=== PATIENT | male | born 1980 | race African-American/Black ===

== ENCOUNTER 2022-10-03 00:48 | Inpatient (IN) | payer SELFPAY ==
[~2022-10-03] VITALS: Ht 162.6 cm; Wt 66.7 kg
[2022-10-03 05:23] LABS: BASOPHILS % 0.4 % (0.0-2.0); HEMATOCRIT. 38.5 % (42.0-52.0); HEMOGLOBIN. 12.6 g/dL (14.0-18.0); LYMPHOCYTES % 25.1 % (20.0-50.0); MEAN CORPUSCULAR HGB CONC 32.7 g/dL (31.0-37.0); MEAN CORPUSCULAR VOLUME 88.8 fL (80.0-94.0); MEAN PLATELET VOLUME 7.8 fl (7.4-10.4); MONOCYTES % 9.7 % (2.0-8.0); NEUTROPHILS % 64.8 % (40.0-76.0); PLATELET 317 x1000/uL (130-400); RED BLOOD CELL COUNT 4.33 mill/uL (4.7-6.1); RED CELL DISTRIBUTION WIDTH 16.8 % (11.6-14.6); WHITE BLOOD COUNT 8.1 x1000/uL (4.5-11.0)
[2022-10-03 05:33] LABS: CHLORIDE 107 mEq/L (98-107); INDEX HEMOLYSI 1 (1-3); INDEX ICTERIC 1 (1-4); INDEX LIPEMIC 1 (1-3); SODIUM 140 mEq/L (136-145)
[2022-10-03 05:42] LABS: ALANINE AMINOTRANSFERASE 31 IU/L (13-61); ALBUMIN 4.1 g/dL (3.4-5.0); ASPARTATE AMINOTRANSFERASE 45 IU/L (15-37); BILIRUBIN TOTAL 0.6 mg/dL (0.1-1.0); CALCIUM 9.9 mg/dL (8.5-10.1); CARBON DIOXIDE 26 mEq/L (21-32); CREATININE 0.9 mg/dL (0.6-1.3); ETHANOL BLOOD < 10 mg/dL (-10); GLUCOSE 85 mg/dL (70-105); PROTEIN TOTAL 8.1 g/dL (6.0-8.3); UREA NITROGEN BLOOD 18 mg/dL (7-21)
[2022-10-03] MEDS ORDERED: POTASSIUM CHLORIDE INJ 40 MEQ in DEXT 5% WATER 250 ML IV ONE (05:45)
[2022-10-03] MEDS: KCL 20MEQ/100ML X 2 FOR TOTAL KCL 40MEQ/200ML IV SCH ×2 (06:00→08:00)
[2022-10-03] MEDS ORDERED: POTASSIUM CHLORIDE 20MEQ TABLET SR PO SCH (07:00)
[2022-10-03] MEDS ORDERED: HALOPERIDOL LACTATE 5MG/ML VIAL IM ONE (07:15)
[2022-10-03] MEDS ORDERED: LORAZEPAM 2MG/ML CPJ IM ONE (07:15)
[2022-10-03 09:02] LABS: *AMPHETAMINES SCREEN URINE NEGATIVE (NEGATIVE); *BARBITURATES SCREEN URINE NEGATIVE (NEGATIVE); *BENZODIAZEPINES SCREEN URINE NEGATIVE (NEGATIVE); *COCAINE SCREEN URINE NEGATIVE (NEGATIVE); CANNABINOID URINE SCREEN NEGATIVE (NEGATIVE); ECSTASY MDMA SCREEN URINE NEGATIVE (NEGATIVE); METHADONE URINE SCREEN NEGATIVE (NEGATIVE); OPIATES URINE SCREEN NEGATIVE (NEGATIVE); PHENCYCLIDINE URINE SCREEN NEGATIVE (NEGATIVE)
[2022-10-09] MEDS ORDERED: SODIUM CHLORIDE 0.9% 1,000 ML IV ONE (14:00)
[2022-10-09 14:18] LABS: BASOPHILS % 0.9 % (0.0-2.0); HEMATOCRIT. 42.8 % (42.0-52.0); HEMOGLOBIN. 14.4 g/dL (14.0-18.0); MEAN CORPUSCULAR HEMOGLOBIN 29.8 pg (28.0-32.0); MEAN CORPUSCULAR HGB CONC 33.7 g/dL (31.0-37.0); MEAN CORPUSCULAR VOLUME 88.5 fL (80.0-94.0); MEAN PLATELET VOLUME 7.9 fl (7.4-10.4); MONOCYTES % 8.6 % (2.0-8.0); NEUTROPHILS % 46.5 % (40.0-76.0); PLATELET 308 x1000/uL (130-400); RED BLOOD CELL COUNT 4.84 mill/uL (4.7-6.1); WHITE BLOOD COUNT 5.2 x1000/uL (4.5-11.0)
[2022-10-09 14:21] LABS: CHLORIDE 104 mEq/L (98-107); INDEX HEMOLYSI 1 (1-3); INDEX ICTERIC 1 (1-4); INDEX LIPEMIC 1 (1-3); POTASSIUM 3.9 mEq/L (3.5-5.1); SODIUM 136 mEq/L (136-145)
[2022-10-09] MEDS ORDERED: LORAZEPAM 2MG/ML CPJ IV ONE (14:30)
[2022-10-09 14:31] LABS: ALANINE AMINOTRANSFERASE 28 IU/L (13-61); ALBUMIN 3.5 g/dL (3.4-5.0); ASPARTATE AMINOTRANSFERASE 22 IU/L (15-37); BILIRUBIN TOTAL 0.5 mg/dL (0.1-1.0); CALCIUM 9.2 mg/dL (8.5-10.1); CARBON DIOXIDE 27 mEq/L (21-32); GLUCOSE 127 mg/dL (70-105); PROTEIN TOTAL 7.2 g/dL (6.0-8.3); TROPONIN I HIGH SENSITIVITY 69 ng/L (<78); UREA NITROGEN BLOOD 11 mg/dL (7-21)
[2022-10-09 17:00] VITALS: BP 143/85; PULSE 69; RESP 20; TEMP 97.3
[2022-10-09 17:15] VITALS: BP 143/85; PULSE 69; RESP 20; TEMP 97.3
[2022-10-09] MEDS ORDERED: ACETAMINOPHEN 650MG/20.3ML UDC PO PRN (18:15)
[2022-10-09] MEDS ORDERED: ONDANSETRON HCL 4MG/2ML INJ IV PRN (18:15)
[2022-10-09] MEDS ORDERED: LORAZEPAM 0.5MG TABLET PO PRN (19:45)
[2022-10-09 20:00] VITALS: BP 116/68; PULSE 66; RESP 16; TEMP 97.1
[2022-10-09] MEDS ORDERED: FOLIC ACID 1 MG, THIAMINE HCL 100 MG, MVI, ADULT NO.1 10 ML in DEXTROSE 5% WATER 1,000 ML IV SCH ×4 (20:30)
[2022-10-10] VITALS: BP 95/56; PULSE 70; RESP 16; TEMP 97.7
[2022-10-10 04:00] VITALS: BP 120/71; PULSE 52; RESP 16; TEMP 97.7
[2022-10-10 08:00] VITALS: BP 100/65; PULSE 83; RESP 18; TEMP 98.1
[2022-10-10 12:00] VITALS: BP_SYST 112; BP_DIAS 56; BP_DIAS 6; PULSE 71; RESP 18; TEMP 97.7
[2022-10-10 16:00] VITALS: BP 124/66; PULSE 76; RESP 18; TEMP 97.4
[2022-10-10 20:00] VITALS: BP 126/71; PULSE 92; RESP 18; TEMP 97
[2022-10-11] VITALS: BP 110/60; PULSE 70; RESP 18; TEMP 98
[2022-10-11 04:00] VITALS: BP 120/93; PULSE 64; RESP 18; TEMP 98
[2022-10-11 08:00] VITALS: BP 124/76; PULSE 92; RESP 20; TEMP 97
[2022-10-11 12:00] VITALS: BP 149/85; PULSE 91; RESP 20; TEMP 99
[2022-10-11 16:00] VITALS: BP 116/76; PULSE 78; RESP 20; TEMP 97.5
[2022-10-11 20:00] VITALS: BP 115/66; PULSE 70; RESP 20; TEMP 98.2
[2022-10-12] VITALS: BP 125/60; PULSE 77; RESP 18; TEMP 98.2
[2022-10-12 04:00] VITALS: BP 116/70; PULSE 95; RESP 18; TEMP 98
[2022-10-12 08:00] VITALS: BP 132/75; PULSE 103; RESP 20; TEMP 98.1
[2022-10-12 12:00] VITALS: BP 128/92; PULSE 68; RESP 18; TEMP 97.4
[2022-10-12 16:00] VITALS: BP 130/70; PULSE 90; RESP 18; TEMP 97.6
[2022-10-12 20:00] VITALS: BP 138/70; PULSE 90; RESP 18; TEMP 98.4
[2022-10-13] VITALS: BP 130/80; PULSE 83; RESP 18; TEMP 97.8
[2022-10-13 04:00] VITALS: BP 112/80; PULSE 82; RESP 18; TEMP 97
[2022-10-13 04:10] LABS: HIV SCREEN 4G Non Reactive (Non Reactive)
[2022-10-13 08:00] VITALS: BP 114/66; PULSE 78; RESP 18; TEMP 97.9
[2022-10-13 12:31] VITALS: BP 127/81; PULSE 86; RESP 20; TEMP 97.6
[2022-10-13 16:00] VITALS: PULSE 102; RESP 18; TEMP 99
[2022-10-14] VITALS: BP 159/78; PULSE 53; RESP 17; TEMP 97.5
[2022-10-14 04:00] VITALS: BP 107/64; PULSE 72; RESP 17; TEMP 97.7
[2022-10-14 12:00] VITALS: BP 124/85; PULSE 102; RESP 18; TEMP 97.6
[2022-10-14 16:00] VITALS: BP 131/78; PULSE 83; RESP 18; TEMP 98.2
[2022-10-14 20:00] VITALS: BP 142/98; PULSE 95; RESP 17; TEMP 97.7
[2022-10-15] VITALS: BP 152/89; PULSE 72; RESP 17; TEMP 97.5
[2022-10-15 04:00] VITALS: BP 133/76; PULSE 95; RESP 17; TEMP 97.9
[2022-10-15 08:00] VITALS: BP 143/91; PULSE 66; RESP 20; TEMP 97.9
[2022-10-15] MEDS: RISPERIDONE 1MG TABLET PO SCH ×2 (10:07→21:07)
[2022-10-15] MEDS ORDERED: HALOPERIDOL LACTATE 5MG/ML VIAL IM PRN (11:15)
[2022-10-15] MEDS ORDERED: LORAZEPAM 2MG/ML CPJ IV PRN (11:15)
[2022-10-15] MEDS ORDERED: DIPHENHYDRAMINE 50MG/ML VIAL IV PRN (11:15)
[2022-10-15 12:00] VITALS: BP 121/58; PULSE 100; RESP 18; TEMP 97.3
[2022-10-15 16:00] VITALS: BP 118/63; PULSE 68; RESP 18; TEMP 97.4
[2022-10-15 20:00] VITALS: BP 116/68; PULSE 88; RESP 20; TEMP 98
[2022-10-16] VITALS: BP 118/66; PULSE 77; RESP 20; TEMP 98.4
[2022-10-16 04:00] VITALS: BP 125/80; PULSE 80; RESP 18; TEMP 98.6
[2022-10-16] MEDS: RISPERIDONE 1MG TABLET PO SCH ×2 (08:59→21:30)
[2022-10-16 12:00] VITALS: BP 143/74; PULSE 78; RESP 18; TEMP 97.6
[2022-10-16 16:00] VITALS: BP 130/71; PULSE 82; RESP 20; TEMP 97.8
[2022-10-16 20:00] VITALS: BP 129/77; PULSE 67; RESP 17; TEMP 97.7
[2022-10-17 08:00] VITALS: BP 126/78; PULSE 97; RESP 17; TEMP 97.8
[2022-10-17] MEDS: RISPERIDONE 1MG TABLET PO SCH ×2 (09:31→22:16)
[2022-10-17 12:00] VITALS: BP 122/78; PULSE 80; RESP 18; TEMP 97.3
[2022-10-17 20:00] VITALS: BP 140/77; PULSE 83; RESP 18; TEMP 97.7
[2022-10-18] VITALS: BP 135/83; PULSE 81; RESP 18; TEMP 97.5
[2022-10-18 04:00] VITALS: BP 119/75; PULSE 82; RESP 18; TEMP 97.5
[2022-10-18 08:00] VITALS: BP 110/60; PULSE 64; RESP 18; TEMP 97.9
[2022-10-18] MEDS: RISPERIDONE 1MG TABLET PO SCH ×2 (10:52→20:52)
[2022-10-18 12:00] VITALS: BP 112/62; PULSE 62; RESP 18; TEMP 98.7
[2022-10-18 16:00] VITALS: BP 110/66; PULSE 64; RESP 16; TEMP 98.7
[2022-10-18 20:24] VITALS: BP 140/59; PULSE 59; RESP 17; TEMP 96.6
[2022-10-19 00:02] VITALS: BP 129/82; PULSE 77; RESP 18; TEMP 97.4
[2022-10-19 04:26] VITALS: BP 105/42; PULSE 74; RESP 18; TEMP 98.1
[2022-10-19] MEDS: RISPERIDONE 1MG TABLET PO SCH ×2 (07:45→21:43)
[2022-10-19 08:00] VITALS: BP 126/74; PULSE 67; RESP 20; TEMP 97.6
[2022-10-19 12:00] VITALS: BP 125/81; PULSE 101; RESP 18; TEMP 96.7
[2022-10-19 16:00] VITALS: BP 127/83; PULSE 94; RESP 20; TEMP 97.6
[2022-10-19 20:00] VITALS: BP 152/86; PULSE 89; RESP 18; TEMP 97
[2022-10-20] VITALS: BP 130/70; PULSE 80; RESP 20; TEMP 97
[2022-10-20 04:00] VITALS: BP 129/80; PULSE 78; RESP 20; TEMP 97
[2022-10-20] MEDS: RISPERIDONE 1MG TABLET PO SCH ×2 (07:37→21:17)
[2022-10-20 07:56] VITALS: BP 127/83; PULSE 67; RESP 20; TEMP 97.1
[2022-10-20 12:00] VITALS: BP 119/74; PULSE 96; RESP 18; TEMP 97.7
[2022-10-20 16:00] VITALS: BP 132/77; PULSE 79; RESP 20; TEMP 97.3
[2022-10-20 20:00] VITALS: BP 124/69; PULSE 73; RESP 17; TEMP 97.7
[2022-10-21] VITALS: BP 136/82; PULSE 81; RESP 17; TEMP 97.7
[2022-10-21 04:00] VITALS: BP 130/72; PULSE 77; RESP 18; TEMP 97.5
[2022-10-21 08:00] VITALS: BP 144/92; PULSE 86; RESP 18; TEMP 97.7
[2022-10-21 08:54] VITALS: PULSE 86; RESP 18; TEMP 97.7
[2022-10-21] MEDS: RISPERIDONE 1MG TABLET PO SCH ×2 (09:00→20:58)
[2022-10-21] MEDS ORDERED: LORAZEPAM 2MG/ML CPJ IM PRN (12:45)
[2022-10-21 16:24] LABS: BASOPHILS % 0.8 % (0.0-2.0); EOSINOPHILS % 0.5 % (0.0-5.0); HEMATOCRIT. 38.9 % (42.0-52.0); HEMOGLOBIN. 12.9 g/dL (14.0-18.0); LYMPHOCYTES % 29.8 % (20.0-50.0); MEAN CORPUSCULAR HEMOGLOBIN 29.2 pg (28.0-32.0); MEAN CORPUSCULAR HGB CONC 33.2 g/dL (31.0-37.0); MEAN CORPUSCULAR VOLUME 87.9 fL (80.0-94.0); MEAN PLATELET VOLUME 7.3 fl (7.4-10.4); MONOCYTES % 6.8 % (2.0-8.0); NEUTROPHILS % 62.1 % (40.0-76.0); PLATELET 345 x1000/uL (130-400); RED BLOOD CELL COUNT 4.43 mill/uL (4.7-6.1); WHITE BLOOD COUNT 6.4 x1000/uL (4.5-11.0)
[2022-10-21 16:27] LABS: CHLORIDE 103 mEq/L (98-107); INDEX HEMOLYSI 1 (1-3); INDEX ICTERIC 1 (1-4); INDEX LIPEMIC 1 (1-3); POTASSIUM 3.9 mEq/L (3.5-5.1); SODIUM 137 mEq/L (136-145)
[2022-10-21 16:32] LABS: AMMONIA 30 uMol/L (<32)
[2022-10-21 16:36] LABS: ALANINE AMINOTRANSFERASE 29 IU/L (13-61); ALBUMIN 3.5 g/dL (3.4-5.0); ASPARTATE AMINOTRANSFERASE 16 IU/L (15-37); BILIRUBIN TOTAL 0.3 mg/dL (0.1-1.0); CARBON DIOXIDE 28 mEq/L (21-32); CREATINE KINASE 80 IU/L (39-308); CREATININE 0.9 mg/dL (0.6-1.3); GLUCOSE 100 mg/dL (70-105); PHOSPHORUS 3.7 mg/dL (2.5-4.9); PROTEIN TOTAL 7.3 g/dL (6.0-8.3); UREA NITROGEN BLOOD 12 mg/dL (7-21)
[2022-10-21 18:00] VITALS: BP 125/70; PULSE 73; RESP 18; TEMP 97.5
[2022-10-21 20:12] VITALS: BP 139/77; PULSE 77; RESP 20; TEMP 97.1
[2022-10-21] MEDS: LEVETIRACETAM 500MG TABLET PO SCH (20:58)
[2022-10-22 01:00] VITALS: BP 129/59; PULSE 82; RESP 20; TEMP 96.9
[2022-10-22 04:00] VITALS: BP 132/45; PULSE 88; RESP 20; TEMP 97.2
[2022-10-22 08:00] VITALS: BP 103/70; PULSE 87; RESP 17; TEMP 97.8
[2022-10-22] MEDS: RISPERIDONE 1MG TABLET PO SCH ×2 (08:09→20:50)
[2022-10-22] MEDS: LEVETIRACETAM 500MG TABLET PO SCH ×2 (08:09→20:50)
[2022-10-22 20:00] VITALS: BP 104/63; PULSE 55; RESP 18; TEMP 97.7
[2022-10-23] VITALS (7 sets, daily range): BP systolic 100–120; BP diastolic 43–75; PULSE 69–88; RESP 18–20; TEMP 97–98.1
[2022-10-23] MEDS: LEVETIRACETAM 500MG TABLET PO SCH ×2 (09:57→20:22)
[2022-10-23] MEDS: RISPERIDONE 1MG TABLET PO SCH ×2 (09:57→20:22)
[2022-10-24 04:00] VITALS: BP 114/62; PULSE 70; RESP 20; TEMP 97.3
[2022-10-24 08:00] VITALS: BP 119/64; PULSE 56; RESP 19; TEMP 96.7
[2022-10-24] MEDS: LEVETIRACETAM 500MG TABLET PO SCH ×2 (08:00→21:24)
[2022-10-24] MEDS: RISPERIDONE 1MG TABLET PO SCH ×2 (08:00→21:24)
[2022-10-24 12:00] VITALS: BP 122/68; PULSE 86; RESP 19; TEMP 97.5
[2022-10-24 16:00] VITALS: BP 116/58; PULSE 82; RESP 19; TEMP 98.9
[2022-10-24 19:32] VITALS: BP 140/76; PULSE 52; RESP 20; TEMP 97.6
[2022-10-25] VITALS: BP 132/55; PULSE 80; RESP 20; TEMP 97.2
[2022-10-25 04:00] VITALS: BP 124/63; PULSE 74; RESP 20; TEMP 97.5
[2022-10-25 08:00] VITALS: BP 128/74; PULSE 69; RESP 20; TEMP 97.5
[2022-10-25] MEDS: LEVETIRACETAM 500MG TABLET PO SCH ×2 (08:12→21:30)
[2022-10-25] MEDS: RISPERIDONE 1MG TABLET PO SCH ×2 (08:12→21:30)
[2022-10-25] MEDS: POLYETHYLENE GLYCOL 3350 (17GM) 1 DOSE PACK PO SCH (11:35)
[2022-10-25 12:00] VITALS: BP 144/74; PULSE 92; RESP 18; TEMP 97.9
[2022-10-25 16:00] VITALS: BP 154/81; PULSE 92; RESP 19; TEMP 98.1
[2022-10-25 20:00] VITALS: BP 122/73; PULSE 92; RESP 17; TEMP 97.5
[2022-10-26] VITALS: RESP 18
[2022-10-26 04:00] VITALS: RESP 17
[2022-10-26 08:00] VITALS: BP 101/62; PULSE 79; RESP 20; TEMP 97.3
[2022-10-26] MEDS: LEVETIRACETAM 500MG TABLET PO SCH ×2 (08:35→20:28)
[2022-10-26] MEDS: RISPERIDONE 1MG TABLET PO SCH ×2 (08:35→20:28)
[2022-10-26] MEDS: POLYETHYLENE GLYCOL 3350 (17GM) 1 DOSE PACK PO SCH (08:35)
[2022-10-26 12:00] VITALS: BP 120/74; PULSE 98; RESP 18; TEMP 97
[2022-10-26] MEDS: LACTULOSE 20G/30ML UDC PO SCH (12:36)
[2022-10-26 16:00] VITALS: BP 111/70; PULSE 88; RESP 20; TEMP 97.6
[2022-10-26 20:00] VITALS: BP 103/63; PULSE 83; RESP 18; TEMP 97
[2022-10-27] VITALS: BP_SYST 107; BP_SYST 114; BP_DIAS 63; BP_DIAS 77; PULSE 70; PULSE 79; PULSE 99; RESP 19; TEMP 97.5; TEMP 97.8
[2022-10-27 04:00] VITALS: BP_SYST 108; BP_SYST 110; BP_DIAS 64; BP_DIAS 68; PULSE 70; PULSE 82; RESP 18; RESP 20; TEMP 97.2; TEMP 97.7
[2022-10-27 08:00] VITALS: BP 122/65; PULSE 71; RESP 18; TEMP 97
[2022-10-27] MEDS: LACTULOSE 20G/30ML UDC PO SCH (09:41)
[2022-10-27] MEDS: RISPERIDONE 1MG TABLET PO SCH ×2 (09:41→22:07)
[2022-10-27] MEDS: POLYETHYLENE GLYCOL 3350 (17GM) 1 DOSE PACK PO SCH (09:41)
[2022-10-27] MEDS: LEVETIRACETAM 500MG TABLET PO SCH ×2 (09:41→21:16)
[2022-10-28 04:00] VITALS: BP 117/65; PULSE 70; RESP 17; TEMP 97.7
[2022-10-28 08:00] VITALS: BP 104/75; PULSE 78; RESP 20; TEMP 98.4
[2022-10-28] MEDS: LEVETIRACETAM 500MG TABLET PO SCH ×2 (08:37→21:04)
[2022-10-28] MEDS: POLYETHYLENE GLYCOL 3350 (17GM) 1 DOSE PACK PO SCH (08:37)
[2022-10-28] MEDS: RISPERIDONE 1MG TABLET PO SCH ×2 (08:37→21:06)
[2022-10-28] MEDS: LACTULOSE 20G/30ML UDC PO SCH (08:37)
[2022-10-28 12:00] VITALS: BP 117/57; PULSE 78; RESP 21; TEMP 98.2
[2022-10-28 16:00] VITALS: BP 114/74; PULSE 85; RESP 20; TEMP 98.8
[2022-10-28 20:00] VITALS: BP 121/75; PULSE 83; RESP 20; TEMP 98.5
[2022-10-28 23:53] VITALS: BP 124/87; PULSE 78; RESP 20; TEMP 98.6
[2022-10-29 04:00] VITALS: BP 127/63; PULSE 64; RESP 20; TEMP 97.9
[2022-10-29 08:00] VITALS: BP 131/85; PULSE 85; RESP 19; TEMP 97.5
[2022-10-29] MEDS: RISPERIDONE 1MG TABLET PO SCH ×2 (09:48→21:00)
[2022-10-29] MEDS: LACTULOSE 20G/30ML UDC PO SCH (09:48)
[2022-10-29] MEDS: LEVETIRACETAM 500MG TABLET PO SCH ×2 (09:48→21:00)
[2022-10-29] MEDS: POLYETHYLENE GLYCOL 3350 (17GM) 1 DOSE PACK PO SCH (09:49)
[2022-10-29 12:00] VITALS: BP 115/72; PULSE 95; RESP 19; TEMP 97.9
[2022-10-29 16:00] VITALS: BP 126/67; PULSE 20; RESP 20; TEMP 98.8
[2022-10-30] VITALS: BP 124/73; PULSE 96; RESP 16; TEMP 97.9
[2022-10-30 04:00] VITALS: RESP 16
[2022-10-30 08:00] VITALS: BP 126/77; PULSE 61; RESP 20; TEMP 97.8
[2022-10-30] MEDS: RISPERIDONE 1MG TABLET PO SCH ×2 (08:58→21:24)
[2022-10-30] MEDS: LEVETIRACETAM 500MG TABLET PO SCH ×2 (08:59→21:24)
[2022-10-30] MEDS: LACTULOSE 20G/30ML UDC PO SCH (08:59)
[2022-10-30] MEDS: POLYETHYLENE GLYCOL 3350 (17GM) 1 DOSE PACK PO SCH (09:02)
[2022-10-30 12:00] VITALS: BP 123/87; PULSE 92; RESP 18; TEMP 98.6
[2022-10-30 16:00] VITALS: BP 120/86; PULSE 81; RESP 20; TEMP 98.1
[2022-10-30 20:00] VITALS: BP 145/125; PULSE 94; RESP 20; TEMP 97.7
[2022-10-31 08:00] VITALS: BP 96/71; PULSE 56; RESP 15; TEMP 98.7
[2022-10-31] MEDS: RISPERIDONE 1MG TABLET PO SCH ×2 (09:05→21:03)
[2022-10-31] MEDS: LEVETIRACETAM 500MG TABLET PO SCH ×2 (09:05→21:03)
[2022-10-31] MEDS: POLYETHYLENE GLYCOL 3350 (17GM) 1 DOSE PACK PO SCH (09:05)
[2022-10-31] MEDS: LACTULOSE 20G/30ML UDC PO SCH (09:05)
[2022-10-31 12:00] VITALS: BP 100/60; PULSE 60; RESP 16; TEMP 96.3
[2022-10-31 16:00] VITALS: BP 108/74; PULSE 68; RESP 18; TEMP 96.4
[2022-10-31 20:00] VITALS: BP 105/59; PULSE 90; RESP 19; TEMP 98.5
[2022-11-01 08:00] VITALS: BP 98/68; PULSE 62; RESP 16; TEMP 97.5
[2022-11-01] MEDS: LACTULOSE 20G/30ML UDC PO SCH (09:21)
[2022-11-01] MEDS: LEVETIRACETAM 500MG TABLET PO SCH ×2 (09:21→21:17)
[2022-11-01] MEDS: POLYETHYLENE GLYCOL 3350 (17GM) 1 DOSE PACK PO SCH (09:22)
[2022-11-01] MEDS: RISPERIDONE 1MG TABLET PO SCH ×2 (09:26→21:17)
[2022-11-01 12:00] VITALS: BP 100/60; PULSE 60; RESP 15; TEMP 97.3
[2022-11-01 16:00] VITALS: BP 124/84; PULSE 80; RESP 20; TEMP 98.3
[2022-11-01 20:00] VITALS: BP 121/80; PULSE 90; RESP 18; TEMP 97.5
[2022-11-02] VITALS: BP 126/66; PULSE 78; RESP 17; TEMP 97.7
[2022-11-02 04:00] VITALS: BP 107/72; PULSE 65; RESP 17; TEMP 97.7
[2022-11-02 08:00] VITALS: BP 122/86; PULSE 81; RESP 19; TEMP 98.2
[2022-11-02] MEDS: LEVETIRACETAM 500MG TABLET PO SCH ×2 (10:00→20:55)
[2022-11-02] MEDS: RISPERIDONE 1MG TABLET PO SCH ×2 (10:00→20:55)
[2022-11-02] MEDS: POLYETHYLENE GLYCOL 3350 (17GM) 1 DOSE PACK PO SCH (10:01)
[2022-11-02] MEDS: LACTULOSE 20G/30ML UDC PO SCH (10:01)
[2022-11-02 12:00] VITALS: BP 123/81; PULSE 106; RESP 20; TEMP 97.7
[2022-11-02 16:00] VITALS: BP 117/68; PULSE 83; RESP 20; TEMP 97.9
[2022-11-03 08:00] VITALS: BP 97/53; PULSE 56; RESP 18; TEMP 97.8
[2022-11-03] MEDS: POLYETHYLENE GLYCOL 3350 (17GM) 1 DOSE PACK PO SCH (09:00)
[2022-11-03] MEDS: LACTULOSE 20G/30ML UDC PO SCH (10:28)
[2022-11-03] MEDS: RISPERIDONE 1MG TABLET PO SCH ×2 (10:28→21:01)
[2022-11-03] MEDS: LEVETIRACETAM 500MG TABLET PO SCH ×2 (10:28→21:01)
[2022-11-03 12:00] VITALS: BP 115/67; PULSE 88; RESP 15; TEMP 98
[2022-11-03 16:00] VITALS: BP 116/69; PULSE 73; RESP 14; TEMP 97.7
[2022-11-03 20:00] VITALS: BP 132/77; PULSE 96; RESP 17; TEMP 97.7
[2022-11-04] VITALS (7 sets, daily range): BP systolic 96–134; BP diastolic 60–78; PULSE 70–92; RESP 15–19; TEMP 97.7–98.3
[2022-11-04] MEDS: POLYETHYLENE GLYCOL 3350 (17GM) 1 DOSE PACK PO SCH (09:15)
[2022-11-04] MEDS: RISPERIDONE 1MG TABLET PO SCH ×2 (09:15→21:01)
[2022-11-04] MEDS: LACTULOSE 20G/30ML UDC PO SCH (09:15)
[2022-11-04] MEDS: LEVETIRACETAM 500MG TABLET PO SCH ×2 (09:15→21:01)
[2022-11-05 04:00] VITALS: BP 119/67; PULSE 74; RESP 18; TEMP 99
[2022-11-05 08:00] VITALS: BP 116/85; PULSE 95; RESP 19; TEMP 98.1
[2022-11-05] MEDS: LEVETIRACETAM 500MG TABLET PO SCH ×2 (09:15→20:15)
[2022-11-05] MEDS: LACTULOSE 20G/30ML UDC PO SCH (09:15)
[2022-11-05] MEDS: POLYETHYLENE GLYCOL 3350 (17GM) 1 DOSE PACK PO SCH (09:15)
[2022-11-05] MEDS: RISPERIDONE 1MG TABLET PO SCH ×2 (09:15→20:15)
[2022-11-05 12:00] VITALS: BP 110/73; PULSE 90; RESP 18; TEMP 98.3
[2022-11-05 16:00] VITALS: BP 115/80; PULSE 80; RESP 17; TEMP 98.5
[2022-11-05 20:00] VITALS: BP 137/78; PULSE 71; RESP 16; TEMP 98.3
[2022-11-06] VITALS: BP 124/80; PULSE 74; RESP 19; TEMP 98.2
[2022-11-06 04:00] VITALS: BP 108/66; PULSE 63; RESP 15; TEMP 97.9
[2022-11-06 08:00] VITALS: BP 122/81; PULSE 69; RESP 18; TEMP 96.9
[2022-11-06] MEDS: LACTULOSE 20G/30ML UDC PO SCH (09:06)
[2022-11-06] MEDS: LEVETIRACETAM 500MG TABLET PO SCH ×2 (09:06→21:23)
[2022-11-06] MEDS: RISPERIDONE 1MG TABLET PO SCH ×2 (09:06→21:24)
[2022-11-06] MEDS: POLYETHYLENE GLYCOL 3350 (17GM) 1 DOSE PACK PO SCH (09:06)
[2022-11-06 12:00] VITALS: BP 108/55; PULSE 91; RESP 19; TEMP 97.9
[2022-11-06 16:00] VITALS: BP 117/62; PULSE 86; RESP 18; TEMP 97.9
[2022-11-07 08:00] VITALS: BP 120/87; PULSE 75; RESP 19; TEMP 98.1
[2022-11-07] MEDS: LEVETIRACETAM 500MG TABLET PO SCH ×2 (10:05→20:32)
[2022-11-07] MEDS: POLYETHYLENE GLYCOL 3350 (17GM) 1 DOSE PACK PO SCH (10:05)
[2022-11-07] MEDS: LACTULOSE 20G/30ML UDC PO SCH (10:05)
[2022-11-07] MEDS: RISPERIDONE 1MG TABLET PO SCH ×2 (10:06→20:32)
[2022-11-07 12:00] VITALS: BP 116/72; PULSE 81; RESP 20; TEMP 97.9
[2022-11-07 16:00] VITALS: BP_SYST 115; BP_SYST 75; BP_DIAS 30; BP_DIAS 64; PULSE 91; RESP 20; TEMP 97.9
[2022-11-07 20:00] VITALS: BP 151/91; PULSE 91; RESP 20; TEMP 98.1
[2022-11-08] VITALS: BP 111/70; PULSE 65; RESP 20; TEMP 95.2
[2022-11-08 08:00] VITALS: BP_SYST 110; BP_SYST 112; BP_DIAS 67; BP_DIAS 70; RESP 20; TEMP 97.9; TEMP 98.5
[2022-11-08] MEDS: LACTULOSE 20G/30ML UDC PO SCH (09:22)
[2022-11-08] MEDS: POLYETHYLENE GLYCOL 3350 (17GM) 1 DOSE PACK PO SCH (09:23)
[2022-11-08] MEDS: RISPERIDONE 1MG TABLET PO SCH ×2 (09:26→20:44)
[2022-11-08] MEDS: LEVETIRACETAM 500MG TABLET PO SCH ×2 (09:26→20:44)
[2022-11-08 12:00] VITALS: BP 112/67; PULSE 87; RESP 20; TEMP 98.5
[2022-11-08 16:00] VITALS: BP 97/73; PULSE 91; RESP 20; TEMP 97.9
[2022-11-08 20:00] VITALS: BP_SYST 114; BP_SYST 115; BP_DIAS 52; BP_DIAS 66; PULSE 97; PULSE 98; RESP 18; TEMP 97.2; TEMP 97.6
[2022-11-09] VITALS: RESP 16
[2022-11-09 04:00] VITALS: BP 97/70; PULSE 100; RESP 18; TEMP 98.1
[2022-11-09 08:00] VITALS: BP 101/68; PULSE 84; RESP 17; TEMP 98.1
[2022-11-09] MEDS: LACTULOSE 20G/30ML UDC PO SCH (08:16)
[2022-11-09] MEDS: LEVETIRACETAM 500MG TABLET PO SCH ×2 (08:16→20:55)
[2022-11-09] MEDS: POLYETHYLENE GLYCOL 3350 (17GM) 1 DOSE PACK PO SCH (08:16)
[2022-11-09] MEDS: RISPERIDONE 1MG TABLET PO SCH ×2 (08:16→20:55)
[2022-11-09 12:00] VITALS: BP 98/70; PULSE 78; RESP 17; TEMP 97.3
[2022-11-09 16:00] VITALS: BP 100/68; PULSE 80; RESP 17; TEMP 96.3
[2022-11-09 20:00] VITALS: BP 100/60; PULSE 77; RESP 20; TEMP 97
[2022-11-10] VITALS: BP 100/80; PULSE 75; RESP 20; TEMP 97.8
[2022-11-10 04:00] VITALS: BP_SYST 110; BP_SYST 124; BP_SYST 136; BP_DIAS 70; BP_DIAS 74; BP_DIAS 86; PULSE 78; PULSE 80; PULSE 88; RESP 18; RESP 20; TEMP 96.9; TEMP 97.7; TEMP 98
[2022-11-10 08:00] VITALS: BP 115/80; PULSE 75; RESP 18; TEMP 98
[2022-11-10] MEDS: LEVETIRACETAM 500MG TABLET PO SCH ×2 (09:06→20:29)
[2022-11-10] MEDS: POLYETHYLENE GLYCOL 3350 (17GM) 1 DOSE PACK PO SCH (09:06)
[2022-11-10] MEDS: LACTULOSE 20G/30ML UDC PO SCH (09:06)
[2022-11-10] MEDS: RISPERIDONE 1MG TABLET PO SCH ×2 (09:06→20:29)
[2022-11-10 12:02] VITALS: BP 107/61; PULSE 85; RESP 18; TEMP 98.2
[2022-11-10 20:00] VITALS: BP 111/81; PULSE 92; RESP 19; TEMP 97.8
[2022-11-11] VITALS: BP 137/83; PULSE 64; RESP 18; TEMP 96.7
[2022-11-11 04:00] VITALS: BP 137/83; PULSE 64; RESP 18; TEMP 97.6
[2022-11-11 08:00] VITALS: BP 115/74; PULSE 70; RESP 20; TEMP 97.9
[2022-11-11] MEDS: LACTULOSE 20G/30ML UDC PO SCH (08:46)
[2022-11-11] MEDS: POLYETHYLENE GLYCOL 3350 (17GM) 1 DOSE PACK PO SCH (08:46)
[2022-11-11] MEDS: RISPERIDONE 1MG TABLET PO SCH ×2 (08:46→20:33)
[2022-11-11] MEDS: LEVETIRACETAM 500MG TABLET PO SCH ×2 (08:46→20:32)
[2022-11-11 12:00] VITALS: BP 119/61; PULSE 83; RESP 20; TEMP 94.9
[2022-11-11 16:00] VITALS: BP 127/72; PULSE 82; RESP 20; TEMP 97.7
[2022-11-12 04:00] VITALS: RESP 16
[2022-11-12 08:00] VITALS: BP 119/69; PULSE 81; RESP 20; TEMP 96.8
[2022-11-12] MEDS: LEVETIRACETAM 500MG TABLET PO SCH ×2 (10:28→21:04)
[2022-11-12] MEDS: RISPERIDONE 1MG TABLET PO SCH ×2 (10:28→21:04)
[2022-11-12] MEDS: LACTULOSE 20G/30ML UDC PO SCH (10:34)
[2022-11-12] MEDS: POLYETHYLENE GLYCOL 3350 (17GM) 1 DOSE PACK PO SCH (10:34)
[2022-11-12 12:00] VITALS: BP 126/68; PULSE 90; RESP 20; TEMP 97.4
[2022-11-12 16:00] VITALS: BP 132/81; PULSE 81; RESP 20; TEMP 98.4
[2022-11-12 20:00] VITALS: BP 118/70; PULSE 82; RESP 16; TEMP 99.8
[2022-11-13 04:00] VITALS: BP 118/70; PULSE 82; RESP 16; TEMP 98.9
[2022-11-13 08:00] VITALS: BP 102/67; PULSE 55; RESP 20; TEMP 98.7
[2022-11-13] MEDS: POLYETHYLENE GLYCOL 3350 (17GM) 1 DOSE PACK PO SCH (08:42)
[2022-11-13] MEDS: LEVETIRACETAM 500MG TABLET PO SCH ×2 (08:43→21:38)
[2022-11-13] MEDS: RISPERIDONE 1MG TABLET PO SCH ×2 (08:43→21:37)
[2022-11-13] MEDS: LACTULOSE 20G/30ML UDC PO SCH (08:43)
[2022-11-13 12:00] VITALS: BP 126/67; PULSE 97; RESP 20; TEMP 98
[2022-11-13 16:00] VITALS: BP 106/69; PULSE 83; RESP 20; TEMP 98
[2022-11-13 20:00] VITALS: BP 122/66; PULSE 91; RESP 20; TEMP 97.9
[2022-11-14 08:03] VITALS: BP 123/80; PULSE 70; RESP 20; TEMP 98
[2022-11-14] MEDS: LEVETIRACETAM 500MG TABLET PO SCH ×2 (09:27→21:30)
[2022-11-14] MEDS: LACTULOSE 20G/30ML UDC PO SCH (09:27)
[2022-11-14] MEDS: RISPERIDONE 1MG TABLET PO SCH ×2 (09:27→21:30)
[2022-11-14] MEDS: POLYETHYLENE GLYCOL 3350 (17GM) 1 DOSE PACK PO SCH (09:27)
[2022-11-14 12:00] VITALS: BP 110/57; PULSE 90; RESP 20; TEMP 98
[2022-11-14 16:32] VITALS: BP 120/80; PULSE 109; RESP 20; TEMP 98
[2022-11-14 20:00] VITALS: BP 138/70; PULSE 88; RESP 19; TEMP 96.8
[2022-11-15] MEDS: RISPERIDONE 1MG TABLET PO SCH ×2 (09:00→20:49)
[2022-11-15] MEDS: LEVETIRACETAM 500MG TABLET PO SCH ×2 (09:00→20:49)
[2022-11-15] MEDS: LACTULOSE 20G/30ML UDC PO SCH (09:00)
[2022-11-15] MEDS: POLYETHYLENE GLYCOL 3350 (17GM) 1 DOSE PACK PO SCH (09:00)
[2022-11-15 12:00] VITALS: BP 123/77; PULSE 118; RESP 20; TEMP 97.7
[2022-11-15 16:00] VITALS: BP 117/75; PULSE 98; RESP 18; TEMP 97.1
[2022-11-16 08:00] VITALS: BP 129/78; PULSE 77; RESP 20; TEMP 95.2
[2022-11-16] MEDS: LACTULOSE 20G/30ML UDC PO SCH (08:46)
[2022-11-16] MEDS: RISPERIDONE 1MG TABLET PO SCH ×2 (08:47→20:38)
[2022-11-16] MEDS: LEVETIRACETAM 500MG TABLET PO SCH ×2 (08:47→20:38)
[2022-11-16] MEDS: POLYETHYLENE GLYCOL 3350 (17GM) 1 DOSE PACK PO SCH (08:47)
[2022-11-16 12:00] VITALS: BP 120/70; PULSE 82; RESP 20; TEMP 97.4
[2022-11-16 16:00] VITALS: BP 127/71; PULSE 94; RESP 20; TEMP 97.3
[2022-11-16 20:00] VITALS: BP 96/71; PULSE 67; RESP 22; TEMP 99.1
[2022-11-17 08:00] VITALS: BP 122/80; PULSE 73; RESP 20; TEMP 97.4
[2022-11-17] MEDS: LEVETIRACETAM 500MG TABLET PO SCH ×2 (09:24→22:04)
[2022-11-17] MEDS: LACTULOSE 20G/30ML UDC PO SCH (09:24)
[2022-11-17] MEDS: POLYETHYLENE GLYCOL 3350 (17GM) 1 DOSE PACK PO SCH (09:24)
[2022-11-17] MEDS: RISPERIDONE 1MG TABLET PO SCH ×2 (09:28→22:04)
[2022-11-17 12:00] VITALS: BP 117/65; PULSE 75; RESP 20; TEMP 97.5
[2022-11-17 16:00] VITALS: BP 115/68; PULSE 76; RESP 20; TEMP 97.4
[2022-11-17 20:00] VITALS: BP 125/77; PULSE 73; RESP 16; TEMP 98.9
[2022-11-18] VITALS: RESP 16
[2022-11-18 04:00] VITALS: RESP 16
[2022-11-18 08:00] VITALS: BP 111/78; PULSE 77; RESP 20; TEMP 96.6
[2022-11-18] MEDS: POLYETHYLENE GLYCOL 3350 (17GM) 1 DOSE PACK PO SCH (09:08)
[2022-11-18] MEDS: RISPERIDONE 1MG TABLET PO SCH ×2 (09:08→21:22)
[2022-11-18] MEDS: LEVETIRACETAM 500MG TABLET PO SCH ×2 (09:08→21:24)
[2022-11-18] MEDS: LACTULOSE 20G/30ML UDC PO SCH (09:08)
[2022-11-18 12:00] VITALS: BP 114/74; PULSE 89; RESP 20; TEMP 96.7
[2022-11-18 16:00] VITALS: BP 132/93; PULSE 70; RESP 19; TEMP 97.2
[2022-11-18 20:00] VITALS: BP 133/76; PULSE 89; RESP 19; TEMP 98.5
[2022-11-19 08:00] VITALS: BP 110/64; PULSE 71; RESP 17; TEMP 98.1
[2022-11-19] MEDS: LEVETIRACETAM 500MG TABLET PO SCH ×2 (09:20→21:00)
[2022-11-19] MEDS: LACTULOSE 20G/30ML UDC PO SCH (09:21)
[2022-11-19] MEDS: RISPERIDONE 1MG TABLET PO SCH ×2 (09:21→21:00)
[2022-11-19] MEDS: POLYETHYLENE GLYCOL 3350 (17GM) 1 DOSE PACK PO SCH (09:21)
[2022-11-19 12:00] VITALS: BP 108/70; PULSE 68; RESP 16; TEMP 98.3
[2022-11-19 16:00] VITALS: BP 125/73; PULSE 99; RESP 20; TEMP 98.5
[2022-11-19 20:00] VITALS: BP 133/72; PULSE 90; RESP 19; TEMP 98.1
[2022-11-20 08:00] VITALS: BP 115/77; PULSE 84; RESP 20; TEMP 97.5
[2022-11-20] MEDS: RISPERIDONE 1MG TABLET PO SCH ×2 (08:28→20:23)
[2022-11-20] MEDS: LEVETIRACETAM 500MG TABLET PO SCH ×2 (08:28→20:23)
[2022-11-20] MEDS: LACTULOSE 20G/30ML UDC PO SCH (08:33)
[2022-11-20] MEDS: POLYETHYLENE GLYCOL 3350 (17GM) 1 DOSE PACK PO SCH (08:33)
[2022-11-20 12:00] VITALS: BP 112/70; PULSE 91; RESP 20; TEMP 97.1
[2022-11-20 16:00] VITALS: BP 109/74; PULSE 88; RESP 20; TEMP 97.4
[2022-11-20 20:00] VITALS: BP 121/75; PULSE 74; RESP 13; TEMP 99
[2022-11-21] VITALS: BP 103/57; PULSE 71; RESP 16; TEMP 98.9
[2022-11-21 08:00] VITALS: BP 133/87; PULSE 93; RESP 19; TEMP 98.1
[2022-11-21] MEDS: POLYETHYLENE GLYCOL 3350 (17GM) 1 DOSE PACK PO SCH (08:34)
[2022-11-21] MEDS: LEVETIRACETAM 500MG TABLET PO SCH ×2 (08:35→20:32)
[2022-11-21] MEDS: RISPERIDONE 1MG TABLET PO SCH ×2 (08:35→20:32)
[2022-11-21] MEDS: LACTULOSE 20G/30ML UDC PO SCH (08:35)
[2022-11-21 12:00] VITALS: BP 120/70; PULSE 70; RESP 17; TEMP 96.8
[2022-11-21 16:00] VITALS: BP 119/68; PULSE 67; RESP 17; TEMP 97.1
[2022-11-21 20:00] VITALS: BP 131/74; PULSE 78; RESP 17; TEMP 98.6
[2022-11-22] VITALS: BP 129/80; PULSE 62; RESP 14; TEMP 99
[2022-11-22 04:00] VITALS: BP 144/67; PULSE 76; RESP 16; TEMP 97.9
[2022-11-22 08:00] VITALS: BP 110/80; PULSE 95; RESP 20; TEMP 97.9
[2022-11-22] MEDS: POLYETHYLENE GLYCOL 3350 (17GM) 1 DOSE PACK PO SCH (08:49)
[2022-11-22] MEDS: LACTULOSE 20G/30ML UDC PO SCH (08:49)
[2022-11-22] MEDS: LEVETIRACETAM 500MG TABLET PO SCH ×2 (08:49→20:26)
[2022-11-22] MEDS: RISPERIDONE 1MG TABLET PO SCH ×2 (08:49→20:26)
[2022-11-22 12:00] VITALS: BP 118/67; PULSE 92; RESP 20; TEMP 93.2
[2022-11-22 16:00] VITALS: BP 121/66; PULSE 85; RESP 20; TEMP 97.5
[2022-11-22 20:00] VITALS: BP 125/75; PULSE 91; RESP 20; TEMP 97.7
[2022-11-23] VITALS: BP 114/73; PULSE 73; RESP 16; TEMP 98.1
[2022-11-23 04:00] VITALS: BP 120/86; PULSE 91; RESP 17; TEMP 97.7
[2022-11-23 08:00] VITALS: BP 133/82; PULSE 74; RESP 17; TEMP 97.3
[2022-11-23] MEDS: LACTULOSE 20G/30ML UDC PO SCH (09:10)
[2022-11-23] MEDS: RISPERIDONE 1MG TABLET PO SCH ×2 (09:10→20:51)
[2022-11-23] MEDS: POLYETHYLENE GLYCOL 3350 (17GM) 1 DOSE PACK PO SCH (09:10)
[2022-11-23] MEDS: LEVETIRACETAM 500MG TABLET PO SCH ×2 (09:11→20:51)
[2022-11-23 12:00] VITALS: BP 139/75; PULSE 78; RESP 16; TEMP 97.6
[2022-11-23 16:00] VITALS: BP 126/65; PULSE 80; RESP 19; TEMP 96.1
[2022-11-23 20:00] VITALS: BP 133/78; PULSE 73; RESP 18; TEMP 97.9
[2022-11-24] VITALS: BP 132/81; PULSE 84; RESP 17; TEMP 97.4
[2022-11-24 04:00] VITALS: BP 136/78; PULSE 75; RESP 17; TEMP 96.5
[2022-11-24 08:00] VITALS: BP 115/72; PULSE 67; RESP 16; TEMP 96.3
[2022-11-24] MEDS: LACTULOSE 20G/30ML UDC PO SCH (08:15)
[2022-11-24] MEDS: POLYETHYLENE GLYCOL 3350 (17GM) 1 DOSE PACK PO SCH (08:16)
[2022-11-24] MEDS: LEVETIRACETAM 500MG TABLET PO SCH ×2 (08:16→21:43)
[2022-11-24] MEDS: RISPERIDONE 1MG TABLET PO SCH ×2 (08:16→21:43)
[2022-11-24 12:00] VITALS: BP 118/75; PULSE 60; RESP 15; TEMP 96.1
[2022-11-24 16:00] VITALS: BP 120/70; PULSE 60; RESP 16; TEMP 96.3
[2022-11-24 20:00] VITALS: BP_SYST 115; BP_SYST 130; BP_DIAS 74; BP_DIAS 81; PULSE 82; PULSE 92; RESP 18; TEMP 97; TEMP 97.5
[2022-11-25 04:00] VITALS: BP 131/91; PULSE 78; RESP 19; TEMP 97.6
[2022-11-25 08:00] VITALS: BP 102/76; PULSE 74; RESP 18; TEMP 96.6
[2022-11-25] MEDS: LEVETIRACETAM 500MG TABLET PO SCH ×2 (08:34→21:35)
[2022-11-25] MEDS: POLYETHYLENE GLYCOL 3350 (17GM) 1 DOSE PACK PO SCH (08:34)
[2022-11-25] MEDS: LACTULOSE 20G/30ML UDC PO SCH (08:34)
[2022-11-25] MEDS: RISPERIDONE 1MG TABLET PO SCH ×2 (08:35→21:35)
[2022-11-25 12:00] VITALS: BP 136/72; PULSE 82; RESP 18; TEMP 94.6
[2022-11-25 20:00] VITALS: BP 115/74; PULSE 82; RESP 19; TEMP 97.7
[2022-11-26] VITALS: BP 134/86; PULSE 94; RESP 20; TEMP 96.6
[2022-11-26] MEDS: POLYETHYLENE GLYCOL 3350 (17GM) 1 DOSE PACK PO SCH (08:00)
[2022-11-26] MEDS: LEVETIRACETAM 500MG TABLET PO SCH ×2 (08:00→20:19)
[2022-11-26] MEDS: LACTULOSE 20G/30ML UDC PO SCH (08:00)
[2022-11-26] MEDS: RISPERIDONE 1MG TABLET PO SCH ×2 (08:04→20:19)
[2022-11-26 12:00] VITALS: BP 121/67; PULSE 73; RESP 20; TEMP 97.9
[2022-11-26 16:00] VITALS: BP 114/70; PULSE 90; RESP 20; TEMP 98.5
[2022-11-26 20:00] VITALS: BP 121/73; PULSE 87; RESP 18; TEMP 97.9
[2022-11-27] VITALS (7 sets, daily range): BP systolic 117–133; BP diastolic 70–86; PULSE 60–88; RESP 14–18; TEMP 96.6–98.1
[2022-11-27] MEDS: LEVETIRACETAM 500MG TABLET PO SCH ×2 (09:10→20:23)
[2022-11-27] MEDS: RISPERIDONE 1MG TABLET PO SCH ×2 (09:10→20:23)
[2022-11-27] MEDS: POLYETHYLENE GLYCOL 3350 (17GM) 1 DOSE PACK PO SCH (09:10)
[2022-11-27] MEDS: LACTULOSE 20G/30ML UDC PO SCH (09:10)
[2022-11-28 04:00] VITALS: BP 122/78; PULSE 71; RESP 16; TEMP 99.3
[2022-11-28 08:00] VITALS: BP 110/68; PULSE 78; RESP 18; TEMP 97.3
[2022-11-28] MEDS: LACTULOSE 20G/30ML UDC PO SCH (08:24)
[2022-11-28] MEDS: RISPERIDONE 1MG TABLET PO SCH ×2 (08:24→20:50)
[2022-11-28] MEDS: LEVETIRACETAM 500MG TABLET PO SCH ×2 (08:24→20:50)
[2022-11-28] MEDS: POLYETHYLENE GLYCOL 3350 (17GM) 1 DOSE PACK PO SCH (08:25)
[2022-11-28 12:00] VITALS: BP 126/79; PULSE 92; RESP 19; TEMP 96.7
[2022-11-28 16:00] VITALS: BP 128/70; PULSE 80; RESP 20; TEMP 97.1
[2022-11-28 20:00] VITALS: BP 118/72; PULSE 87; RESP 18; TEMP 99.3
[2022-11-29 08:00] VITALS: BP 134/84; PULSE 70; RESP 18; TEMP 98.2
[2022-11-29] MEDS: POLYETHYLENE GLYCOL 3350 (17GM) 1 DOSE PACK PO SCH (08:34)
[2022-11-29] MEDS: LACTULOSE 20G/30ML UDC PO SCH (08:34)
[2022-11-29] MEDS: RISPERIDONE 1MG TABLET PO SCH ×2 (08:35→20:33)
[2022-11-29] MEDS: LEVETIRACETAM 500MG TABLET PO SCH ×2 (08:35→20:32)
[2022-11-29 12:00] VITALS: BP 113/64; PULSE 87; RESP 20; TEMP 97.9
[2022-11-29 16:00] VITALS: BP 110/66; PULSE 81; RESP 18; TEMP 98
[2022-11-29 20:00] VITALS: BP 122/76; PULSE 83; RESP 15; TEMP 99.7
[2022-11-30] VITALS: BP 114/69; PULSE 73; RESP 16; TEMP 99.3
[2022-11-30 04:00] VITALS: BP 135/85; PULSE 68; RESP 17; TEMP 97.7
[2022-11-30 08:00] VITALS: BP 126/78; PULSE 92; RESP 20; TEMP 97.9
[2022-11-30] MEDS: LEVETIRACETAM 500MG TABLET PO SCH ×2 (08:46→20:24)
[2022-11-30] MEDS: POLYETHYLENE GLYCOL 3350 (17GM) 1 DOSE PACK PO SCH (08:46)
[2022-11-30] MEDS: RISPERIDONE 1MG TABLET PO SCH ×2 (08:46→20:24)
[2022-11-30] MEDS: LACTULOSE 20G/30ML UDC PO SCH (08:46)
[2022-11-30 12:00] VITALS: BP 115/70; PULSE 75; RESP 20; TEMP 97.9
[2022-11-30 20:00] VITALS: BP 121/67; PULSE 91; RESP 20; TEMP 98.5
[2022-12-01] VITALS: BP 110/72; PULSE 67; RESP 18; TEMP 98.1
[2022-12-01 04:00] VITALS: BP 122/74; PULSE 70; RESP 18; TEMP 97.7
[2022-12-01 08:00] VITALS: BP 120/63; PULSE 84; RESP 19; TEMP 97.7
[2022-12-01] MEDS: RISPERIDONE 1MG TABLET PO SCH ×2 (08:48→21:13)
[2022-12-01] MEDS: POLYETHYLENE GLYCOL 3350 (17GM) 1 DOSE PACK PO SCH (08:48)
[2022-12-01] MEDS: LACTULOSE 20G/30ML UDC PO SCH (08:48)
[2022-12-01] MEDS: LEVETIRACETAM 500MG TABLET PO SCH ×2 (08:48→21:13)
[2022-12-01 12:00] VITALS: BP 99/60; PULSE 96; RESP 18; TEMP 97.9
[2022-12-01 16:00] VITALS: BP 102/55; PULSE 105; RESP 18; TEMP 97.9
[2022-12-01 20:00] VITALS: BP 126/76; PULSE 95; RESP 18; TEMP 97.8
[2022-12-02] VITALS: BP 120/53; PULSE 88; RESP 18; TEMP 97.8
[2022-12-02 04:00] VITALS: BP 132/75; PULSE 97; RESP 18; TEMP 97.9
[2022-12-02] MEDS: LACTULOSE 20G/30ML UDC PO SCH (09:00)
[2022-12-02] MEDS: RISPERIDONE 1MG TABLET PO SCH ×2 (09:37→21:32)
[2022-12-02] MEDS: LEVETIRACETAM 500MG TABLET PO SCH ×2 (09:37→21:32)
[2022-12-02] MEDS: POLYETHYLENE GLYCOL 3350 (17GM) 1 DOSE PACK PO SCH (09:37)
[2022-12-03] MEDS: LEVETIRACETAM 500MG TABLET PO SCH ×2 (09:07→21:00)
[2022-12-03] MEDS: RISPERIDONE 1MG TABLET PO SCH ×2 (09:07→21:00)
[2022-12-03] MEDS: LACTULOSE 20G/30ML UDC PO SCH (09:08)
[2022-12-03] MEDS: POLYETHYLENE GLYCOL 3350 (17GM) 1 DOSE PACK PO SCH (09:11)
[2022-12-03 20:00] VITALS: BP 105/69; PULSE 88; RESP 17; TEMP 97.9
[2022-12-04] VITALS: BP 94/51; PULSE 61; RESP 18; TEMP 97.7
[2022-12-04 04:00] VITALS: BP 105/60; PULSE 80; RESP 18; TEMP 97.7
[2022-12-04 08:00] VITALS: BP 118/86; PULSE 84; RESP 19; TEMP 98.7
[2022-12-04] MEDS: LACTULOSE 20G/30ML UDC PO SCH (08:55)
[2022-12-04] MEDS: POLYETHYLENE GLYCOL 3350 (17GM) 1 DOSE PACK PO SCH (08:55)
[2022-12-04] MEDS: LEVETIRACETAM 500MG TABLET PO SCH ×2 (08:55→21:06)
[2022-12-04] MEDS: RISPERIDONE 1MG TABLET PO SCH ×2 (08:55→21:06)
[2022-12-04 16:00] VITALS: BP 117/76; PULSE 90; RESP 19; TEMP 95.7
[2022-12-04 20:00] VITALS: BP 113/75; PULSE 84; RESP 19; TEMP 97.5
[2022-12-05 04:00] VITALS: BP_SYST 108; BP_SYST 111; BP_DIAS 63; BP_DIAS 75; PULSE 77; RESP 18; TEMP 97.8
[2022-12-05] MEDS: POLYETHYLENE GLYCOL 3350 (17GM) 1 DOSE PACK PO SCH (08:54)
[2022-12-05] MEDS: LACTULOSE 20G/30ML UDC PO SCH (08:54)
[2022-12-05] MEDS: LEVETIRACETAM 500MG TABLET PO SCH ×2 (08:54→21:15)
[2022-12-05] MEDS: RISPERIDONE 1MG TABLET PO SCH ×2 (08:54→21:15)
[2022-12-05 20:00] VITALS: BP 114/73; PULSE 89; RESP 20; TEMP 98.4
[2022-12-06] VITALS: BP 95/60; PULSE 64; RESP 20; TEMP 98.5
[2022-12-06 04:00] VITALS: BP 152/92; PULSE 95; PULSE 96; RESP 18; TEMP 99
[2022-12-06 08:00] VITALS: BP 121/73; PULSE 77; RESP 20; TEMP 97.9
[2022-12-06] MEDS: POLYETHYLENE GLYCOL 3350 (17GM) 1 DOSE PACK PO SCH (08:58)
[2022-12-06] MEDS: LEVETIRACETAM 500MG TABLET PO SCH ×2 (08:58→20:37)
[2022-12-06] MEDS: LACTULOSE 20G/30ML UDC PO SCH (08:58)
[2022-12-06] MEDS: RISPERIDONE 1MG TABLET PO SCH ×2 (09:03→20:37)
[2022-12-06 12:00] VITALS: BP 113/73; PULSE 99; RESP 20; TEMP 97.7
[2022-12-06 16:00] VITALS: BP 120/70; PULSE 76; RESP 20; TEMP 97.7
[2022-12-07 04:00] VITALS: BP 125/88; PULSE 94; RESP 20; TEMP 95.9
[2022-12-07 08:00] VITALS: BP 108/66; PULSE 64; RESP 20; TEMP 97.9
[2022-12-07] MEDS: LEVETIRACETAM 500MG TABLET PO SCH ×2 (08:08→22:04)
[2022-12-07] MEDS: POLYETHYLENE GLYCOL 3350 (17GM) 1 DOSE PACK PO SCH (08:08)
[2022-12-07] MEDS: RISPERIDONE 1MG TABLET PO SCH ×2 (08:08→22:05)
[2022-12-07] MEDS: LACTULOSE 20G/30ML UDC PO SCH (08:08)
[2022-12-07 12:00] VITALS: BP 82/53; PULSE 89; RESP 20; TEMP 97.7
[2022-12-07 16:00] VITALS: BP 107/75; PULSE 89; RESP 20; TEMP 97.8
[2022-12-07 20:00] VITALS: BP 107/59; PULSE 65; RESP 20; TEMP 98.1
[2022-12-08] VITALS: BP 114/71; PULSE 84; RESP 20; TEMP 98.2
[2022-12-08 04:00] VITALS: BP 126/77; PULSE 82; RESP 20; TEMP 98.7
[2022-12-08 08:00] VITALS: BP 112/72; PULSE 72; RESP 20; TEMP 97.9
[2022-12-08] MEDS: LACTULOSE 20G/30ML UDC PO SCH (10:07)
[2022-12-08] MEDS: POLYETHYLENE GLYCOL 3350 (17GM) 1 DOSE PACK PO SCH (10:07)
[2022-12-08] MEDS: LEVETIRACETAM 500MG TABLET PO SCH ×2 (10:08→22:04)
[2022-12-08] MEDS: RISPERIDONE 1MG TABLET PO SCH ×2 (10:08→22:04)
[2022-12-08 12:00] VITALS: BP 124/75; PULSE 100; RESP 20; TEMP 97.6
[2022-12-08 16:00] VITALS: BP 125/81; PULSE 88; RESP 20; TEMP 97.6
[2022-12-08 20:00] VITALS: BP 105/81; PULSE 103; RESP 18; TEMP 97.7
[2022-12-09] VITALS: BP 113/64; PULSE 96; RESP 20; TEMP 97.2
[2022-12-09 04:00] VITALS: BP 110/68; PULSE 92; RESP 20; TEMP 97.1
[2022-12-09] MEDS: LEVETIRACETAM 500MG TABLET PO SCH (11:28)
[2022-12-09] MEDS: LACTULOSE 20G/30ML UDC PO SCH (11:28)
[2022-12-09] MEDS: RISPERIDONE 1MG TABLET PO SCH (11:29)
[2022-12-09] MEDS: POLYETHYLENE GLYCOL 3350 (17GM) 1 DOSE PACK PO SCH (11:29)
[2022-12-09] MEDS ORDERED: RISP1 PO (15:26)
[2022-12-09] MEDS ORDERED: KEPP500 PO (15:26)
[2022-12-09 17:20] VITALS: BP 117/79; PULSE 99; TEMP 96.5; O2SAT 100
== END 2022-12-09 18:00 | DRG 52 ==
LOC: ER 00:48 → MICUSO 14:32 → UNDOADMIN 14:32 → 8WST 10-09 14:32 → 4WST 10-16 07:16 → 6WST 10-27 19:40 → 6EST 11-30 16:23
PROVIDERS: ADMIT Internal Medicine; ATTEND Internal Medicine
DX: G93.41 Metabolic encephalopathy (principal); R56.9 Unspecified convulsions; E87.6 Hypokalemia; Z20.822 Contact with and (suspected) exposure to COVID-19; Z59.00 Homelessness unspecified
CPT/HCPCS: 36415; 70551; 71045; 80053; 80305; 80320; 82140; 82550; 82962; 83605; 83735; 84100; 84484; 85025; 87389; 87426; 93005; 96372; 97161; 97165; 99285; C9803; J1630; J2060; J3411; J3480; J3490; J7030; J7070; G0480